=== PATIENT | female | born 1990 | race African-American/Black ===

== ENCOUNTER 2017-10-15 05:30 | Emergency (ER) | payer MEDICAID ==
[~2017-10-15] VITALS: Ht 165.1 cm; Wt 90.7 kg
[2017-10-15 05:50] VITALS: BP 157/109
--- NOTE | 2017-10-15 05:56 | Emergency Room Report ---
History of Present Illness General Chief Complaint: Skin Rash/Abscess Source: Patient Present Illness HPI Is a 26-year-old female with no significant past medical history. She presents with chief point is a boy to the left groin area. Onset for the last week. Getting worse. Not draining. Tender to palpation. She wax in the area. Had problem like this before but resolved spontaneously. Allergies: Coded Allergies: No Known Allergies (Unverified , 10/15/17) Patient History Past Medical History: see triage record, old chart reviewed Past Surgical History: other Pertinent Family History: none Social History: Denies: smoking Last Menstrual Period: 10/14/17 Now: No Immunizations: other Reviewed Nursing Documentation: PMH: Agreed; PSxH: Agreed Nursing Documentation-PMH Past Medical History: No History, Except For Hx Cardiac Problems: No - Anemia Hx Hypertension: Yes Review of Systems Eye: Denies: eye pain, blurred vision ENT: Denies: ear pain, nose congestion, throat swelling Respiratory: Denies: cough, shortness of breath Cardiovascular: Denies: chest pain, palpitations Gastrointestinal: Denies: abdominal pain, diarrhea, nausea, vomiting Musculoskeletal: Denies: back pain, joint pain Skin: Denies: rash Neurological: Denies: headache, numbness Endocrine: Denies: increased thirst, increased urine Hematologic/Lymphatic: Denies: easy bruising All Other Systems: negative except mentioned in HPI Physical Exam Vital Signs Date Time Temp Pulse Resp B/P (MAP) Pulse Ox O2 Delivery O2 Flow Rate FiO2 10/15/17 05:40 99.6 107 16 157/109 99 Room Air 99.7 vitals normal except for high blood pressure Sp02 EP Interpretation: reviewed, normal General Appearance: well appearing, no apparent distress, alert Head: normocephalic, atraumatic Eyes: bilateral eye PERRL, bilateral eye EOMI ENT: hearing grossly normal, normal pharynx Neck: full range of motion, supple, no meningismus Respiratory: chest non-tender, lungs clear, normal breath sounds Cardiovascular #1: regular rate, rhythm, no murmur Gastrointestinal: normal bowel sounds, non tender, no mass, no organomegaly, no bruit, non-distended Musculoskeletal: back normal, gait/station normal, normal range of motion Neurologic: alert, oriented x3 Psychiatric: mood/affect normal Skin: warm/dry, other - Left groin area: Indurated and fluctuant area of about 5 cm. Tender to palpation. Procedures Incision and Drainage Incision and Drainage : Consent: Verbal Site: left inguinal area Blade Size: 11 I & D Procedure: betadine prep, sterile drapes applied, sterile dressing applied, gauze wick placed Wound Location: lower extremity Anesthesia: 1% Lidocaine Volume Anesthetic (ccs): 10 Patient Tolerated: Well Complications: None Progress Area clean with chlorhexidine. Local acetic with 1% lidocaine. I made a 3 some incision. There was copious amount of pus expressed. Luckily the area broken up. Wound irrigated and packed. Patient tolerated procedure without a problem. Medical Decision Making Diagnostic Impression: Primary Impression: Abscess Additional Impression: Hypertension Qualified Codes: I10 - Essential (primary) hypertension ER Course Patient with abscess to left groin area. No evidence of deep infection or necrotizing fasciitis. Most likely MRSA. Patient was diagnosed with high blood pressure in the past but not on it any medication. She just had blood work done 3 months ago and was told she was anemic. We'll discharge home with Norvasc. Last Vital Signs Date Time Temp Pulse Resp B/P (MAP) Pulse Ox O2 Delivery O2 Flow Rate FiO2 10/15/17 05:40 99.6 107 16 157/109 99 Room Air 99.7 Status: improved Disposition: HOME, SELF-CARE Condition: Stable Scripts Amlodipine Besylate (Norvasc) 10 Mg Tablet 10 MG ORAL DAILY, #90 TAB Prov: ARMANDO SLADE M.D. 10/15/17 Hydrocodone/Acetaminophen 5-325* (HYDROCODONE/ACETAMINOPHEN 5-325*) 1 Each Tablet 1 TAB ORAL Q6H PRN for For Pain, #20 TAB 0 Refills Prov: ARMANDO SLADE M.D. 10/15/17 Trimethoprim/Sulfamethoxazole 160/800* (BACTRIM DS TABLET*) 1 Each Tablet 1 TAB ORAL Q12H, #14 TAB 0 Refills Prov: ARMANDO SLADE M.D. 10/15/17 Referrals: NON PHYSICIAN (PCP) Patient Instructions: Abscess Additional Instructions: return in 2 days for recheck. Return if worse. ARMANDO SLADE M.D. Oct 15, 2017 05:56
[2017-10-15] MEDS ORDERED: NORVASC10 MG ORAL (06:11)
[2017-10-15] MEDS ORDERED: BACTRIM DS TAB1 EAC1 ORAL (06:11)
[2017-10-15] MEDS ORDERED: HYDROCODON-ACE1 EA15 ORAL (06:11)
[2017-10-15] MEDS ORDERED: Norco 5mg/325mg tab ORAL ONE (06:15)
[2017-10-15 06:18] VITALS: BP 157/109
== END 2017-10-15 06:18 | disposition home or self-care (01) ==
LOC: EMR 05:46
DX: L02.214 Cutaneous abscess of groin (principal); I10 Essential (primary) hypertension
CPT/HCPCS: 10060; 99284

== ENCOUNTER 2017-10-18 19:26 | Emergency (ER) | payer MEDICAID ==
[~2017-10-18] VITALS: Ht 165.1 cm; Wt 90.7 kg
[~2017-10-18 19:26] MED LIST: BACTRIM DS TAB1 EAC1 ORAL; HYDROCODON-ACE1 EA15 ORAL; NORVASC10 MG ORAL
[2017-10-18 19:50] VITALS: BP 147/84
--- NOTE | 2017-10-18 20:11 | Emergency Room Report ---
History of Present Illness General Chief Complaint: Skin Rash/Abscess Source: Patient Present Illness HPI 26-year-old female patient presents ER complaining of boil on vagina. Patient is also requesting dressing change on boil from previous visit. Reports was seen 3 days ago to have I and D procedure on boil left thigh. Reports since that time another possible has developed on outer left vagina. Denies pain with urination. Denies recent sexual encounter. Denies fever, chilling or shortness of breath. Denies other acute symptoms. Allergies: Coded Allergies: No Known Allergies (Unverified , 10/15/17) Patient History Past Medical History: see triage record Reviewed Nursing Documentation: PMH: Agreed; PSxH: Agreed Nursing Documentation-PMH Past Medical History: No History, Except For Hx Cardiac Problems: No - Anemia Hx Hypertension: Yes Review of Systems All Other Systems: negative except mentioned in HPI Physical Exam Vital Signs Date Time Temp Pulse Resp B/P (MAP) Pulse Ox O2 Delivery O2 Flow Rate FiO2 10/18/17 19:43 98.5 89 18 147/84 99 Room Air 98.4 Sp02 EP Interpretation: reviewed, normal General Appearance: well appearing, no apparent distress, alert, GCS 15, non- toxic Head: normocephalic, atraumatic ENT: hearing grossly normal, normal pharynx, no angioedema, normal voice, uvula midline, moist mucus membranes Neck: full range of motion Respiratory: lungs clear, normal breath sounds, no rhonchi, no respiratory distress, no accessory muscle use, no wheezing, speaking full sentences Cardiovascular #1: regular rate, rhythm, no edema Musculoskeletal: back normal, digits/nails normal, gait/station normal, normal range of motion, non-tender Neurologic: alert, oriented x3, responsive, motor strength/tone normal, sensory intact Psychiatric: mood/affect normal Skin: other - left external labia majora: 4cm abscess, fluctant, does not come to a point, no drainage, TTP; left proximal inner thigh: drained abscess, no erythema, no edema, no drainage Procedures Incision and Drainage Incision and Drainage : Consent: Verbal Site: left labia majora Blade Size: 11 I & D Procedure: betadine prep, sterile drapes applied, sterile dressing applied; no gauze wick placed Wound Location: pelvis Wound's Depth, Shape: superficial Wound Length (cm): 1 Wound Explored: contaminated Irrigated w/ Saline (ccs): 10 Anesthesia: 1% Lidocaine Volume Anesthetic (ccs): 2 Splint Applied?: No Sling Applied?: No Patient Tolerated: Well Complications: None Medical Decision Making PA Attestation Dr. Ibarra is my supervising Physician whom patient management has been discussed with. Diagnostic Impression: Primary Impression: Abscess Additional Impression: Wound check, abscess ER Course Pt. presents to the ED c/o abscess and wound check. Ddx considered but are not limited to rash, cellulitis, abscess, sebaceous cyst , carbuncle, folliculitis. Does not require imaging at this time. Vital signs: are WNL, pt. is afebrile ED INTERVENTIONS: Tylenol for pain Abscess on left external labia majora. Local block of abscess performed with lidocaine. I&D of abscess performed, small <1cm incision. Wound irrigated. Copious amount of pus expressed, loculations broke up. Wound cleaned and dressed. Due to new onset of abscess since previous visit, will provide additional abx coverage with Keflex. Reviewed previous chart. Previous abscess appears to be healing well, no erythema, no edema, no red streaking. Patient denies fever, nausea, vomiting. Wound re-packed with iodoform gauze packing Sterile dressing applied to wound. Patient tolerated procedures without difficulty. Patient instructed to continue taking medication as previously instructed. Keep area clean and dry. DISCHARGE: -Rx provided for Keflex -Rx provided for [place], Reviewed [facility], no recent prescriptions filled, states that previous prescription was not able to be filled at pharmacy because it was not filled out completely. At this time pt. is stable for d/c to home. Patient is resting comfortably, in no acute distress, nontoxic appearing. Will provide printed patient care instructions and any necessary prescriptions. Care plan and follow up instructions have been discussed with the patient prior to discharge. Patient instructed to follow-up with primary care provider in 2 - 3 days for wound recheck. Patient questions asked and answered. Patient reports understanding and agreement to treatment plan. ER precautions given. Patient instructed to return to ER immediately for any new or worsening of symptoms including but not limited to fever, worsening of pain symptoms, worsening of erythema, red streaking. - Please note that this Emergency Department Report was dictated using [employer] associate technology software, occasionally this can lead to erroneous entry secondary to interpretation by the dictation equipment. Last Vital Signs Date Time Temp Pulse Resp B/P (MAP) Pulse Ox O2 Delivery O2 Flow Rate FiO2 10/18/17 19:50 98.4 89 18 147/84 99 Room Air 98.4 Disposition: HOME, SELF-CARE Condition: Stable Scripts Hydrocodone Bit/Acetaminophen 5-325* (NORCO 5-325*) 1 Each Tablet 1 TAB ORAL Q6H PRN for For Pain, #10 TAB 0 Refills Prov: Hayder Portillo 10/18/17 Cephalexin* (KEFLEX*) 500 Mg Capsule 500 MG ORAL EVERY 12 HOURS, #14 CAP 0 Refills Prov: Hayder Portillo 10/18/17 Referrals: [facility],REFERRING (PCP) Patient Instructions: Abscess Additional Instructions: Followup with primary care provider in 2-3 days for wound check and wound packing. Keep area clean and dry. Apply warm compresses to area. Take medications as directed. Patient questions asked and answered. ER precautions given, patient instructed to return to ER immediately for any new or worsening of symptoms. Hayder Portillo Oct 18, 2017 20:11
[2017-10-18] MEDS ORDERED: Acetaminophen 500mg (ES) tab ORAL ONE (20:15)
[2017-10-18] MEDS ORDERED: NORCO 5-325 TA1 EACH ORAL (20:57)
[2017-10-18] MEDS ORDERED: CEPHALEXIN500 MG ORAL (20:57)
[2017-10-18 21:00] VITALS: BP 144/75
[2017-10-18 21:06] VITALS: BP 147/84
== END 2017-10-18 21:06 | disposition home or self-care (01) ==
LOC: EMR 19:50
DX: N76.4 Abscess of vulva (principal); I10 Essential (primary) hypertension
CPT/HCPCS: 56405; 99284; Z7502